=== PATIENT | male | born 1995 | race Two or more races ===

== ENCOUNTER 2020-02-27 01:51 | Emergency (ER) | payer MEDICAID ==
[~2020-02-27] VITALS: Ht 175.3 cm; Wt 65.8 kg
[2020-02-27 02:00] VITALS: BP 131/81
--- NOTE | 2020-02-27 02:00 | NUR ---
Nurse Note: Pt walked in c/o pain in LT upper jaw that radiates to head since 4 days. Pt stated pain is worsening. Unable to follow up with dentist.
[2020-02-27] MEDS ORDERED: IBUPROFEN600 M1 ORAL (02:09)
[2020-02-27] MEDS ORDERED: AMOXICILLIN500 MG ORAL (02:09)
[2020-02-27] MEDS ORDERED: HYDROCODON-ACE1 EA15 ORAL (02:09)
--- NOTE | 2020-02-27 02:09 | Emergency Room Report ---
History of Present Illness General Chief Complaint: Toothache Source: Patient Present Illness HPI Is a 25-year-old male with no past medical history. Presents with chief complaint of dental pain. Onset for last 4 days. Worse with eating. Pain is localized to the left side of the jaw. Both upper and lower. Is 9 out of 10. No fever chills. No nausea no vomiting. No swelling. He said he saw a dentist today but did have his ID. He was told to go get an ID before they are able to see him. Allergies: Coded Allergies: No Known Allergies (Unverified , 02/27/20) COVID-19 Screening Contact w/high risk pt: No Experienced COVID-19 symptoms?: No COVID-19 Testing performed VIDEO PHOTOGRAPHER: No Patient History Past Medical History: none, see triage record, old chart reviewed Past Surgical History: none Pertinent Family History: none Social History: Denies: smoking Immunizations: other Reviewed Nursing Documentation: PMH: Agreed; PSxH: Agreed Nursing Documentation-PMH Past Medical History: No Stated History Review of Systems Eye: Denies: eye pain, blurred vision ENT: Denies: ear pain, nose congestion, throat swelling Respiratory: Denies: cough, shortness of breath Cardiovascular: Denies: chest pain, palpitations Gastrointestinal: Denies: abdominal pain, diarrhea, nausea, vomiting Musculoskeletal: Denies: back pain, joint pain Skin: Denies: rash Neurological: Denies: headache, numbness Endocrine: Denies: increased thirst, increased urine Hematologic/Lymphatic: Denies: easy bruising All Other Systems: negative except mentioned in HPI Physical Exam Vital Signs Date Time Temp Pulse Resp B/P (MAP) Pulse Ox O2 Delivery O2 Flow Rate FiO2 02/27/20 01:54 98.4 71 16 131/81 (98) 98 Room Air Vitals normal Sp02 EP Interpretation: reviewed, normal General Appearance: well appearing, no apparent distress, alert Head: normocephalic, atraumatic Eyes: bilateral eye PERRL, bilateral eye EOMI ENT: hearing grossly normal, normal pharynx, other - Patient has tenderness over his left upper and lower wisdom teeth. They are coming in at an angle. No abscess. Neck: full range of motion, supple, no meningismus Respiratory: chest non-tender, lungs clear, normal breath sounds Cardiovascular #1: regular rate, rhythm, no murmur Gastrointestinal: normal bowel sounds, non tender, no mass, no organomegaly, no bruit, non-distended Musculoskeletal: back normal, normal range of motion, gait/station normal Psychiatric: mood/affect normal Medical Decision Making Diagnostic Impression: Primary Impression: Toothache ER Course This patient presents with dental pain. Could be because of the angle of his wisdom teeth. Could also be underlying infection. No obvious abscess that can be I&D. Will discharge home. Last Vital Signs Date Time Temp Pulse Resp B/P (MAP) Pulse Ox O2 Delivery O2 Flow Rate FiO2 02/27/20 01:54 98.4 71 16 131/81 (98) 98 Room Air Status: improved Disposition: HOME, SELF-CARE Condition: Stable Scripts Ibuprofen* (MOTRIN*) 600 Mg Tablet 600 MG ORAL Q6H PRN for For Pain, #30 TAB 0 Refills Prov: Chito Rushing MD 02/27/20 Hydrocodone/Acetaminophen 5-325* (HYDROCODONE/ACETAMINOPHEN 5-325*) 1 Each Tablet 1 TAB ORAL Q6H PRN for For Pain, #20 TAB 0 Refills Prov: Chito Rushing MD 02/27/20 Amoxicillin* (AMOXIL*) 500 Mg Capsule 500 MG ORAL THREE TIMES A DAY, #21 CAP Prov: Chito Rushing MD 02/27/20 Referrals: NOT CHOSEN [facility]/,REFERRING (PCP) Patient Instructions: Dental Pain Additional Instructions: Follow up with dentist ROCAEL. Return if symptoms worsen. Chito Rushing MD Feb 27, 2020 02:09
[2020-02-27 02:15] VITALS: BP 131/81
[2020-02-27] MEDS ORDERED: HYDROcodone/Acetamin 5/325 tab ORAL ONE (02:15)
--- NOTE | 2020-02-27 02:15 | NUR ---
ED Nurse Note: Pt cleared by health care Provider for discharge. DC instructions/prescription was given and explained to pt and verbalized understanding of teachings. All medical deviecs such as ID band removed. Pt is AAO x4, ambulatory and left with all personal belongings.
== END 2020-02-27 02:15 | disposition home or self-care (01) ==
LOC: EMR 02:04
DX: K08.89 Other specified disorders of teeth and supporting structures (principal)
CPT/HCPCS: 99282

== ENCOUNTER 2020-03-27 16:43 | Emergency (ER) | payer MEDICAID ==
[~2020-03-27] VITALS: Ht 175.3 cm; Wt 81.6 kg
[~2020-03-27 16:43] MED LIST: AMOXICILLIN500 MG ORAL; HYDROCODON-ACE1 EA15 ORAL; IBUPROFEN600 M1 ORAL
[2020-03-27 17:18] VITALS: BP 131/80
--- NOTE | 2020-03-27 17:18 | NUR ---
ED Nurse Note:pt. c/o bilateral wisdom teeth pain
[2020-03-27] MEDS ORDERED: ANBESOL ORO ONE (17:45)
--- NOTE | 2020-03-27 18:18 | Emergency Room Report ---
History of Present Illness General Chief Complaint: Toothache Source: Patient Present Illness HPI 25 YO male presents to the ED c/o 11/25 in severity pain, tenderness, and a swollen lump to the gumline of one of his lower left molars. He reports dealing with bilateral wisdom teeth pain x 3 weeks, however these are new symptoms in a different location. Pt. was seen by dentist who reported pt. needs anesthesia and surgical removal of wisdom teeth. Pt. does not currently have insurance and can't afford the up front payment needed at the dentist office. Pt. reports UTD with vaccinations. he denies swelling of the cheek, pain with swallowing or swollen painful lymph nodes. Denies significant pmhx. Denies tobacco use. Allergies: Coded Allergies: No Known Allergies (Unverified , 02/27/20) COVID-19 Screening Contact w/high risk pt: No Experienced COVID-19 symptoms?: No COVID-19 Testing performed PATTERNMAKER BENCH: No Patient History Past Medical History: see triage record Past Surgical History: none Pertinent Family History: none Immunizations: UTD Reviewed Nursing Documentation: PMH: Agreed; PSxH: Agreed Nursing Documentation-PMH Past Medical History: No Stated History Review of Systems All Other Systems: negative except mentioned in HPI Physical Exam Vital Signs Date Time Temp Pulse Resp B/P (MAP) Pulse Ox O2 Delivery O2 Flow Rate FiO2 03/27/20 17:12 97.5 69 17 131/80 (97) 99 Room Air Sp02 EP Interpretation: reviewed, normal General Appearance: no apparent distress, alert, GCS 15, non-toxic Head: normocephalic, atraumatic Eyes: bilateral eye normal inspection, bilateral eye PERRL ENT: hearing grossly normal, normal voice, other - 0.5 cm localized circumscribed swelling and fluctuance to the buccal aspect of the gum line over tooth # 19. Neck: full range of motion Respiratory: lungs clear, normal breath sounds, speaking full sentences Cardiovascular #1: regular rate, rhythm Musculoskeletal: normal range of motion, gait/station normal, non-tender Neurologic: alert, motor strength/tone normal, oriented x3, sensory intact, responsive, speech normal Psychiatric: judgement/insight normal Skin: normal color Lymphatic: no adenopathy Procedures Incision and Drainage Incision and Drainage : Consent: Verbal Site: gum line on buccal surface of tooth # 19. Blade Size: 11 Wound Location: other - Mouth Wound's Depth, Shape: linear Wound Length (cm): 1 Wound Explored: contaminated - scant purulent fluid expressed along with blood Anesthesia: other - anbesol Splint Applied?: No Sling Applied?: No Patient Tolerated: Well Complications: None Medical Decision Making PA Attestation Dr. Pinto is my supervising Physician whom patient management has been discussed with. Diagnostic Impression: Primary Impression: Gingival abscess ER Course 25 YO male presents to the ED c/o 11/25 in severity pain, tenderness, and a swollen lump to the gumline of one of his lower left molars. He reports dealing with bilateral wisdom teeth pain x 3 weeks, however these are new symptoms in a different location. Pt. was seen by dentist who reported pt. needs anesthesia and surgical removal of wisdom teeth. Pt. does not currently have insurance and can't afford the up front payment needed at the dentist office. Pt. reports UTD with vaccinations. he denies swelling of the cheek, pain with swallowing or swollen painful lymph nodes. Denies significant pmhx. Denies tobacco use. Ddx considered but are not limited to cellulitis, dental abscess, orbital cellulitis, d/l tooth, dental pain. trigeminal neuralgia. Vital signs: are WNL, pt. is afebrile H&PE are most consistent with dental abscess. ORDERS: --Anbesol ED INTERVENTIONS: --Incision and drainage DISCHARGE: At this time pt. is stable for d/c to home. Will provide printed patient care instructions, and any necessary prescriptions. Care plan and follow up instructions have been discussed with the patient prior to discharge. Last Vital Signs Date Time Temp Pulse Resp B/P (MAP) Pulse Ox O2 Delivery O2 Flow Rate FiO2 03/27/20 17:18 97.5 69 17 131/80 99 Room Air Status: improved Disposition: HOME, SELF-CARE Condition: Stable Scripts Ibuprofen* (MOTRIN*) 600 Mg Tablet 600 MG ORAL THREE TIMES A DAY, #20 TAB Prov: Dalila Biggs 03/27/20 Chlorhexidine Gluconate (CHLORHEXIDINE GLUCONATE) 473 Ml Mouthwash 15 ML MM TID, #473 ML Prov: Dalila Biggs 03/27/20 Amoxicillin/Potassium Clav 875-125 Mg Tab* (AMOX TR-K CLV 875-125 MG TAB*) 1 Each Tablet 1 TAB ORAL EVERY 12 HOURS for 7 Days, #14 TAB Prov: Dalila Biggs 03/27/20 Referrals: NOT CHOSEN [facility]/,REFERRING (PCP) [facility] Patient Instructions: Dental Pain Additional Instructions: Take medications as directed. Follow up with a Dentist in 3-5 days, even if your symptoms have resolved. --Please review list of Dental clinics, if you do not already have a Dentist Return sooner to ED if new symptoms occur, or current symptoms become worse. Do not drink alcohol, drive, or operate heavy machinery while taking Tylenol # 3 as this may cause drowsiness. - Please note that this Emergency Department Report was dictated using [employer] choir director technology software, occasionally this can lead to erroneous entry secondary to interpretation by the dictation equipment. Dalila Biggs Mar 27, 2020 18:18
[2020-03-27] MEDS ORDERED: CHLORHEXIDINE473 ML MM (18:19)
[2020-03-27] MEDS ORDERED: IBUPROFEN600 M1 ORAL (18:19)
[2020-03-27] MEDS ORDERED: AMOX TR-K CLV1 EAC2 ORAL (18:19)
[2020-03-27 18:36] VITALS: BP 131/80
--- NOTE | 2020-03-27 18:37 | NUR ---
DISCHARGED HOME WITH INSTRUCTION AND RX FOLLOW UP WITH PMD
== END 2020-03-27 18:38 | disposition home or self-care (01) ==
LOC: EMR 16:57
DX: K05.319 Chronic periodontitis, localized, unspecified severity (principal)
CPT/HCPCS: 41800; Z7502; 99283